=== PATIENT | female | born 1940 | race Caucasian/White ===

== ENCOUNTER 2016-12-15 16:32 | Observation (INO) | payer OTHER, MEDICARE ==
[~2016-12-15] VITALS: Ht 162.6 cm; Wt 51.2 kg
[2016-12-15] MEDS ORDERED: NITROGLYCERIN OINT 2% 1GM PACKET EXT STA (16:39)
[2016-12-15] MEDS ORDERED: SODIUM CHLORIDE 0.9% 1000ML 500 ML IV STA (16:39)
[2016-12-15] MEDS ORDERED: DOXY100C2 PO (16:49)
[2016-12-15] MEDS ORDERED: MULT-513 PO (16:49)
[2016-12-15] MEDS ORDERED: ERYTTAB PO (16:49)
[2016-12-15] MEDS ORDERED: CHOL1000 PO (16:49)
[2016-12-15] MEDS ORDERED: LEVO88TA3 PO (16:49)
[2016-12-15] MEDS ORDERED: ASPI81TA28 PO (16:49)
[2016-12-15] MEDS ORDERED: TRAM-10 PO (16:49)
--- NOTE | 2016-12-15 17:07 | EMERGENCY ROOM VISIT NOTE ---
History Report prepared by Guzman: Abbie Law Under the Supervision of: Dr. Partha Corrales M.D. First contact with patient: 16:34 Stated Complaint: CHEST PAIN History of Present Illness The patient is a 76 year old female who presents to the Emergency Room with complaints of an episode of chest pain that started two hours ago. The patient states that she was at the [employer] and had just walked up steps to get to her seat when she noticed pain in her chest on the left side. She states that it was a 4/10 in severity and radiated into her jaw. The patient reports that she felt the need to lie down. She states that her and her called for an ambulance. She reports that a half hour ago after taking four baby Aspirin and laying down, her pain resolved. The patient denies the pain radiating into her arms and back. She notes a history of costochondritis, but reports this feeling totally different. The patient denies shortness of breath, nausea, diaphoresis, a history of a heart attack, a history of angina, a history of COPD, a history of emphysema, a history of hypertension, and any similar pain within the past week. The patient notes a history of Lyme disease. Source of History: patient Onset: two hours ago Position: chest (left) Symptom Intensity: 4/10 Quality: other (radiating) Timing: other (episode) Associated Symptoms: No diaphoresis, No SOB, No nausea Note: The patient denies a history of a heart attack, a history of angina, a history of COPD, a history of emphysema, a history of hypertension, and any similar pain within the past week. Review of Systems See HPI for pertinent positives & negatives. A total of 10 systems reviewed and were otherwise negative. Past Medical & Surgical Medical Problems: (1) Lyme disease Family History No pertinent family history Social History Smoking Status: Current Some Day Smoker Marital Status: Housing Status: lives with significant other Current/Historical Medications Scheduled Aspirin (Aspirin Ec), 81 MG PO DAILY Cholecalciferol (Vitamin D3), 1 TAB PO DAILY Doxycycline Hyclate (Vibramycin), 100 MG PO DAILY Erythromycin (Erythromycin), 1 TAB PO DAILY Levothyroxine Sodium (Levothyroxine Sodium), 1 TAB PO DAILY Multivitamins/Minerals (Mvi With Minerals), 1 TAB PO DAILY Scheduled PRN Tramadol (Ultram), 50 MG PO QID PRN for Pain Allergies Coded Allergies: Cyclobenzaprine (Verified Allergy, Unknown, INSOMNIA, 12/15/16) Physical Exam Vital Signs Date Time Temp Pulse Resp B/P (MAP) Pulse Ox O2 Delivery O2 Flow Rate FiO2 12/15/16 19:06 68 20 162/89 96 Room Air 12/15/16 18:37 67 21 98 12/15/16 18:30 163/81 12/15/16 18:29 150/81 12/15/16 18:07 74 22 98 12/15/16 18:06 74 175/111 12/15/16 18:02 75 25 98 12/15/16 18:00 175/111 12/15/16 17:47 76 22 97 12/15/16 17:45 168/103 12/15/16 17:17 72 20 99 12/15/16 17:10 78 20 171/95 98 12/15/16 17:05 171/95 12/15/16 17:02 87 20 98 12/15/16 16:47 87 21 100 12/15/16 16:40 88 12/15/16 16:36 36.8 87 20 182/102 98 Room Air 12/15/16 16:36 97 Room Air 12/15/16 16:33 182/102 Physical Exam GENERAL: Patient is in no acute distress. HEENT: No acute trauma, normocephalic atraumatic, mucous membranes moist, no nasal congestion, no scleral icterus. NECK: No stridor, no adenopathy, no meningismus, trachea is midline. LUNGS: Clear to auscultation bilaterally, no wheeze, no rhonchi, breath sounds equal. HEART: Without murmurs gallops or rubs, regular rate and rhythm. ABDOMEN: Soft, nontender, bowel sounds positive, no hernias, no peritonitis. EXTREMITIES: No cyanosis or edema, full range of motion of all the joints without pain or difficulty, no signs for acute trauma. NEUROLOGIC: Oriented x 3, no acute motor or sensory deficits, no focal weakness. SKIN: No rash, no jaundice, no diaphoresis. Medical Decision & Procedures ER Provider Diagnostic Interpretation: Radiology results as stated below per my review and radiologist interpretation: CHEST ONE VIEW PORTABLE CLINICAL HISTORY: CHEST PAIN dyspnea COMPARISON STUDY: No previous studies for comparison. FINDINGS: The bones soft tissues and hemidiaphragms are normal. The cardiomediastinal silhouette is normal. The lungs are clear. The pulmonary vasculature is normal. IMPRESSION: Negative chest. The above report was generated using voice recognition software. It may contain grammatical, syntax or spelling errors. Electronically signed by: Jonh Savage M.D. 12/15/2016 5:44 PM Dictated Date/Time: 12/15/2016 5:44 PM Laboratory Results 12/15/16 16:18 12/15/16 16:18 Test 12/15/16 16:18 12/15/16 17:02 Red Blood Count 4.65 M/uL (4.2-5.4) Mean Corpuscular Volume 92.7 fL (80-100) Mean Corpuscular Hemoglobin 32.5 pg (25-34) Mean Corpuscular Hemoglobin Concent 35.0 g/dl (32-36) RDW Standard Deviation 45.5 fL (36.4-46.3) RDW Coefficient of Variation 13.5 % (11.5-14.5) Mean Platelet Volume 8.7 fL (7.4-10.4) Prothrombin Time 10.2 SECONDS (9.0-12.0) Prothromb Time International Ratio 1.0 (0.9-1.1) Activated Partial Thromboplast Time 25.1 SECONDS (21.0-31.0) Partial Thromboplastin Ratio 1.0 Anion Gap 7.0 mmol/L (3-11) Est Creatinine Clear Calc Drug Dose 45.8 ml/min Estimated GFR () 75.0 Estimated GFR (Non- 64.7 BUN/Creatinine Ratio 26.8 (10-20) Calcium Level 9.1 mg/dl (8.5-10.1) Total Bilirubin 0.2 mg/dl (0.2-1) Aspartate Amino Transf (AST/SGOT) 22 U/L (15-37) Alanine Aminotransferase (ALT/SGPT) 28 U/L (12-78) Alkaline Phosphatase 76 U/L (45-117) Total Protein 7.1 gm/dl (6.4-8.2) Albumin 3.8 gm/dl (3.4-5.0) Globulin 3.3 gm/dl (2.5-4.0) Albumin/Globulin Ratio 1.2 (0.9-2) Lipase 248 U/L (73-393) Chemistry Specimen Hemolysis Bedside Troponin I < 0.030 ng/ml (0-0.045) Laboratory results reviewed by me. Medications Administered Medications (Trade) Dose Ordered Sig/Vitaliy Route Start Time Stop Time Status Last Admin Dose Admin Sodium Chloride 500 ml @ 999 mls/hr Q31M STAT IV 12/15/16 16:39 12/15/16 17:09 DC 12/15/16 17:07 999 MLS/HR Nitroglycerin (Nitroglycerin 2% Oint) 1 inch NOW STAT EXT 12/15/16 16:39 12/15/16 16:42 DC 12/15/16 17:07 1 INCH Metoprolol Tartrate (Lopressor Iv) 5 mg NOW STAT IV 12/15/16 17:52 12/15/16 17:53 DC 12/15/16 18:06 5 MG ECG Indication: chest pain Rate (beats per minute): 85 Rhythm: normal sinus Findings: no acute ischemic change, no ectopy, other (poor R wave progression) ED Course 1635: The patient was evaluated in room A4. A complete history and physical exam was performed. 163: Ordered Nitroglycerin 1 inch EXT, NSS 500 ml @ 999 mls/hr IV. 175: I reevaluated the patient and she is doing okay. I discussed her test results with her and she agreed to the treatment plan. 175: Ordered Lopressor Iv 5 mg IV. 1817: Discussed the patient's case with Dr. Cr. The patient will be evaluated for further management. Medical Decision Differential diagnoses angina, IA, musculoskeletal pain, PE, pneumonia, pneumothorax. There is no leukocytosis or concerning anemia. No significant electrolyte abnormality or kidney failure. There is no hepatitis or coagulopathy. EKG shows a sinus rhythm, no acute ischemia. Cardiac enzyme testing 1 is not consistent with acute cardiac injury. Chest x-ray does not show pneumonia, pneumothorax or mediastinal widening. The patient presents with chest pain that radiated to her jaw after [place] the [place] stairs. She has cardiac risk factors. Right now, she is pain- free. She already received oral aspirin. She was given nitro paste. I gave her IV Lopressor as she was persistently hypertensive. The patient is still pain-free. Her story is concerning for angina. I do think a hospital stay is warranted. I spoke with the patient and case management. The on-call hospitalist was consulted. Consults Time Called: 1752 Consulting Physician: Dr. Cr Returned Call: 1817 Discussed the patient's case with Dr. Cr. The patient will be evaluated for further management. Impression Primary Impression: Precordial chest pain Scribe Attestation The scribe's documentation has been prepared under my direction and personally reviewed by me in its entirety. I confirm that the note above accurately reflects all work, treatment, procedures, and medical decision making performed by me. Departure Information Dispostion Being Evaluated By Hospitalist
[2016-12-15 17:08] LABS: HEMATOCRIT 43.1 % (37-47); MEAN CELL VOLUME 92.7 fL (80-100); MEAN CORPUSCULAR HEMOGLOBIN 32.5 pg (25-34); MEAN PLATELET VOLUME 8.7 fL (7.4-10.4); PLATELET COUNT 245 K/uL (130-400); RED BLOOD COUNT 4.65 M/uL (4.2-5.4); WHITE BLOOD COUNT 8.19 K/uL (4.8-10.8)
[2016-12-15 17:19] LABS: PROTHROMBIN TIME (PATIENT) 10.2 SECONDS (9.0-12.0)
[2016-12-15 17:38] LABS: ALB/GLOB RATIO 1.2 (0.9-2); BUN/CREATININE RATIO 26.8 (10-20); CALCIUM 9.1 mg/dl (8.5-10.1); CREATININE 0.88 mg/dl (0.60-1.20); POTASSIUM 4.4 mmol/L (3.5-5.1)
--- NOTE | 2016-12-15 17:45 | DIAGNOSTIC IMAGING REPORT ---
CHEST ONE VIEW PORTABLE CLINICAL HISTORY: CHEST PAIN dyspnea COMPARISON STUDY: No previous studies for comparison. FINDINGS: The bones soft tissues and hemidiaphragms are normal. The cardiomediastinal silhouette is normal. The lungs are clear. The pulmonary vasculature is normal. IMPRESSION: Negative chest. The above report was generated using voice recognition software. It may contain grammatical, syntax or spelling errors. Electronically signed by: Jonh Savage M.D. 12/15/2016 5:44 PM Dictated Date/Time: 12/15/2016 5:44 PM
[2016-12-15] MEDS ORDERED: METOPROLOL TARTRATE 1 MG/ML VIAL IV STA (17:52)
[2016-12-15] MEDS ORDERED: NITROGLYCERIN 0.4 MG SL PER TAB CHARGE SL PRN (20:15)
[2016-12-15] MEDS ORDERED: ONDANSETRON INJ 2 MG/ML 2 ML VIAL IV PRN (20:15)
[2016-12-15] MEDS ORDERED: ACETAMINOPHEN 325 MG TAB PO PRN (20:15)
[2016-12-15] MEDS ORDERED: ALUMINUM/MAGNESIUM/SIMETH (MAALOX MAX) 30 ML UDC PO PRN (20:15)
[2016-12-15] MEDS ORDERED: POLYETHYLENE (MIRALAX) 17 GM PACK PO PRN (20:15)
[2016-12-15] MEDS ORDERED: MAGNESIUM HYDROXIDE SUSP 30 ML UDC PO PRN (20:15)
[2016-12-15 21:15] VITALS: BP 174/77; PULSE 65; TEMP 36.5; O2SAT 97; Ht 162.6 cm; Wt 51.2 kg
[2016-12-15] MEDS ORDERED: IV FLUIDS COMPLETED PRN (21:30)
[2016-12-15] MEDS ORDERED: TRAMADOL HCL 50 MG TAB PO PRN (21:45)
--- NOTE | 2016-12-15 23:31 | History and Physical ---
History & Physical Date & Time of Service: Dec 15, 2016 at 23:31 Chief Complaint: Precordial Chest Pain Primary Care Physician: No Doctor, Assigned History of Present Illness Source: patient, hospital records This is a 76 yo F w/ hx of Lyme disease, Hx Costochondritis, Hx of Hypothyroidism, presenting with Chest pain. Patient reports Left Sided 2/10 Chest pain that started after walking up steps in [facility] during the football game today. Pain was intermittent sharp stabbing quality which would last for seconds typically with radiation to the jaw bilaterally. She denies any aggravating factors. She also reports palpitation. She was seen by EMT at [facility] at received ASA after which she says the pain resolved. She denies SOB , orthopnea, PND, calf tenderness. Patient has no Hx of heart conditions, HTN, Diabetes, HLD. She is a tobacco user. She has no hx of reflux and denies meal association with her symptoms. In the ED, she was afebrile, BP was elevated on arrival at 182/102. She was given IV Metoprolol 5 mg. EKG was unremarkable and Troponin was negative. Past Medical/Surgical History Past Medical HX - Lyme Disease - Costochondritis Past Surg Hx - Jose E Knee replacement - Cervical, Lumbar Spinal Surgery Family History No pertinent family history Social History Smoking Status: Current Every Day Smoker Alcohol Use: occasionally Drug Use: none Marital Status: Housing status: lives with family Allergies Coded Allergies: Cyclobenzaprine (Verified Allergy, Unknown, INSOMNIA, 12/15/16) Home Medications Scheduled Aspirin (Aspirin Ec), 81 MG PO DAILY Cholecalciferol (Vitamin D3), 1 TAB PO DAILY Doxycycline Hyclate (Vibramycin), 100 MG PO DAILY Erythromycin (Erythromycin), 1 TAB PO DAILY Levothyroxine Sodium (Levothyroxine Sodium), 1 TAB PO DAILY Multivitamins/Minerals (Mvi With Minerals), 1 TAB PO DAILY Scheduled PRN Tramadol (Ultram), 50 MG PO QID PRN for Pain Review of Systems Constitutional: + weakness, No fever, No chills Respiratory: No cough, No shortness of breath Cardiovascular: + chest pain, + palpitations, No edema Abdomen: No pain, No nausea, No vomiting Genitourinary - Female: No dysuria, No urinary frequency, No urinary urgency Hematologic / Lymphatic: No abnormal bleeding/bruising, No clotting problems Integumentary: No rash, No itch Physical Exam Vital Signs Date Time Temp Pulse Resp B/P (MAP) Pulse Ox O2 Delivery O2 Flow Rate FiO2 12/15/16 21:15 36.5 65 18 174/77 97 Room Air 12/15/16 20:56 36.8 67 18 155/92 97 12/15/16 20:50 67 18 155/92 97 Room Air 12/15/16 20:20 66 20 170/99 97 Room Air 12/15/16 19:06 68 20 162/89 96 Room Air 12/15/16 18:37 67 21 98 12/15/16 18:30 163/81 12/15/16 18:29 150/81 12/15/16 18:07 74 22 98 12/15/16 18:06 74 175/111 12/15/16 18:02 75 25 98 12/15/16 18:00 175/111 12/15/16 17:47 76 22 97 12/15/16 17:45 168/103 12/15/16 17:17 72 20 99 12/15/16 17:10 78 20 171/95 98 12/15/16 17:05 171/95 12/15/16 17:02 87 20 98 12/15/16 16:47 87 21 100 12/15/16 16:40 88 12/15/16 16:36 36.8 87 20 182/102 98 Room Air 12/15/16 16:36 97 Room Air 12/15/16 16:33 182/102 GENERAL: alert, well appearing, well nourished, no distress, non-toxic EYE EXAM: normal conjunctiva, PERRL and EOM's grossly intact OROPHARYNX: no exudate, no erythema, lips, buccal mucosa, and tongue normal and mucous membranes are moist NECK: supple, no nuchal rigidity, no adenopathy, non-tender LUNGS: Clear to auscultation. Normal chest wall mechanics HEART: no murmurs, S1 normal and S2 normal ABDOMEN: abdomen soft, non-tender, normo-active bowel sounds, no masses, no rebound or guarding. SKIN: no rashes and no bruising UPPER EXTREMITIES: upper extremities are grossly normal. LOWER EXTREMITIES: No pitting edema. NEURO EXAM: Normal sensorium, cranial nerves II-XII grossly intact, normal speech Diagnostics Laboratory Results Results Past 24 Hours Test 9/9/17 16:18 12/15/16 17:02 12/15/16 20:43 Range/Units White Blood Count 8.19 4.8-10.8 K/uL Red Blood Count 4.65 4.2-5.4 M/uL Hemoglobin 15.1 12.0-16.0 g/dL Hematocrit 43.1 37-47 % Mean Corpuscular Volume 92.7 80-100 fL Mean Corpuscular Hemoglobin 32.5 25-34 pg Mean Corpuscular Hemoglobin Concent 35.0 32-36 g/dl RDW Standard Deviation 45.5 36.4-46.3 fL RDW Coefficient of Variation 13.5 11.5-14.5 % Platelet Count 245 130-400 K/uL Mean Platelet Volume 8.7 7.4-10.4 fL Prothrombin Time 10.2 9.0-12.0 SECONDS Prothromb Time International Ratio 1.0 0.9-1.1 Activated Partial Thromboplast Time 25.1 21.0-31.0 SECONDS Partial Thromboplastin Ratio 1.0 Sodium Level 139 136-145 mmol/L Potassium Level 4.4 3.5-5.1 mmol/L Chloride Level 104 98-107 mmol/L Carbon Dioxide Level 28 21-32 mmol/L Anion Gap 7.0 3-11 mmol/L Blood Urea Nitrogen 24 7-18 mg/dl Creatinine 0.88 0.60-1.20 mg/dl Est Creatinine Clear Calc Drug Dose 45.8 ml/min Estimated GFR () 75.0 Estimated GFR (Non- 64.7 BUN/Creatinine Ratio 26.8 10-20 Random Glucose 96 70-99 mg/dl Calcium Level 9.1 8.5-10.1 mg/dl Total Bilirubin 0.2 0.2-1 mg/dl Aspartate Amino Transf (AST/SGOT) 22 15-37 U/L Alanine Aminotransferase (ALT/SGPT) 28 12-78 U/L Alkaline Phosphatase 76 45-117 U/L Total Protein 7.1 6.4-8.2 gm/dl Albumin 3.8 3.4-5.0 gm/dl Globulin 3.3 2.5-4.0 gm/dl Albumin/Globulin Ratio 1.2 0.9-2 Lipase 248 73-393 U/L Chemistry Specimen Hemolysis Bedside Troponin I < 0.030 0-0.045 ng/ml Troponin I 0.017 0-0.045 ng/ml Diagnostic Radiology CHEST ONE VIEW PORTABLE CLINICAL HISTORY: CHEST PAIN dyspnea COMPARISON STUDY: No previous studies for comparison. FINDINGS: The bones soft tissues and hemidiaphragms are normal. The cardiomediastinal silhouette is normal. The lungs are clear. The pulmonary vasculature is normal. IMPRESSION: Negative chest. CXR normal Impression Assessment and Plan 76 yo F smoker p/w intermittent L sided Chest pain with radiation to the jaw Admit to Tele (Obs) Chest pain - Stable Angina vs. Unstable angina vs. GERD vs. Costochondritis - ACS unlikely given unremarkable EKG, troponin ; Costochondritis possible given previous hx however, symptoms differ from previous sensation, - No hx of GERD or meal association w/ symptoms - CXR unremarkable - Initial troponin neg. - trend troponin q 8 - PRN Nitro - F/u Lipid panel -Echo Jose E knee pain - c/w Tramadol Hypothyroidism - synthroid DVT Prophylaxis -SCD Full code Level of Care Telemetry Advanced Directives Existing Living Will: Yes Existing Power of Spinner Concrete Pipe: Yes Resuscitation Status FULL RESUSCITATION VTE Prophylaxis VTE Risk Assessment Done? Y/N: Yes Risk Level: Moderate Given or contraindicated: SCD's Resident Tracking Resident Involvement: Resident Care Provided Care Provided: Adult Hospital Medicine
[2016-12-15 23:45] VITALS: BP 214/86
[2016-12-16] VITALS (7 sets, daily range): BP systolic 157–187; BP diastolic 71–78; PULSE 64–79; TEMP 36.3–36.7; O2SAT 96–98
[2016-12-16] MEDS ORDERED: HYDROCODONE/ACETAMOPHEN 5/325MG TAB PO PRN (03:15)
[2016-12-16] MEDS ORDERED: LORAZEPAM 0.5 MG TAB PO STA (03:20)
[2016-12-16] MEDS ORDERED: LORAZEPAM 0.5 MG TAB PO PRN (03:30)
[2016-12-16] MEDS ORDERED: LEVOTHYROXINE 88 MCG TAB PO SCH (06:00)
[2016-12-16 08:41] LABS: CHOLESTEROL/HDL RATIO 2.4
[2016-12-16] MEDS ORDERED: ASPIRIN 81 MG ECTAB PO SCH (09:00)
[2016-12-16] MEDS ORDERED: TPRSR25 PO (12:38)
[2016-12-16] MEDS ORDERED: NTRGSL4 SL (12:38)
[2016-12-16] MEDS ORDERED: METOPROLOL TARTRATE 25 MG TAB PO ONE (12:45)
--- NOTE | 2016-12-16 12:51 | Discharge Instructions ---
Discharge Instructions Date of Service Dec 16, 2016. Admission Reason for Admission: Precordial Chest Pain Discharge Discharge Diagnosis / Problem: chest pain - reflux versus angina Discharge Goals Goal(s): Diagnostic testing, Therapeutic intervention Activity Recommendations Activity Limitations: as noted below . Instructions / Follow-Up Instructions / Follow-Up as we discussed, your symptoms "sit on the fence" between symptoms that could be consistent with indigestion, or more worrisome symptoms that could be indicative of angina (lack of blood flow to your heart) ---the workup we did in the hospital is able to answer the question of "was this an acute heart attack" (abundantly no -- EKG reassuring, cardiac enzymes negative on multiple repetitions) but in no way can answer the question of whether or not this was angina from your heart asking for more blood flow than it could get -to that end, further testing is needed -assuming that your echo does not show stigmata of an old heart attack, the next step would be stress testing, coordinated by Dr Saavedra -if your echo does show findings consistent with an old heart attack, the stress test would be replaced by a heart cath to evaluate the blood vessels. as we discussed while this is unlikely to be the case, if it were, the current event would not have been an acute heart attack anyway, as cardiac enzymes are nearly 100% sensitive for this, and can remain elevated for at least a week after an event -until further workup, we'll need to treat as though this could be your heart: a) take it easy. since the symptoms happened with exertion, as long as you take it easy, even if this was your heart, it's not likely to cause you problems until the further workup is done b) continue your 81mg aspirin a day c) take the metoprolol until directed otherwise by Dr Saavedra. Metoprolol as a blood pressure med takes strain off your heart, and can be very protective in supply-demand//lack of blood flow types of situations - so until we've got this better defined, we want you taking the metoprolol d) if you get chest symptoms, stop what you're doing and rest. if the symptoms don't go away with rest, then you'd take a nitroglycerin under your tongue. if the symptoms persist five minutes after the first nitro, take a second nitro. at this point, because your situation is "undefined" we'd recommend that when you take the second nitro, you also chew an aspirin and call 911. (compared to someone who has known heart disease, where there's "wiggle room" for another five minutes and a third nitro, when we have someone that the situation still needs further workup, we "lower the bar" to keep you safe). if you're getting symptoms with exertion that resolve with nitro, it also makes the situation more worrisome that this may be cardiac try to quit smoking!! if there are blood vessel blockages, smoking is usually the single worst thing at making them get tighter/more blocked, lead to heart attacks and strokes, etc. -consider calling the [place] Quit Line -- 1800 QUIT NOW -- for some advice from people who have been there and have some strategies that can help. Current Hospital Diet Patient's current hospital diet: Regular Diet Discharge Diet Recommended Diet: Regular Diet Pending Studies Studies pending at discharge: yes List of pending studies: your echocardiogram has yet to be read by cardiology. as we discussed, if it shows stigmata of old heart attack, then Dr Saavedra would be compelled to skip the stress test and refer you to cardiology to discuss a heart cath. If it shows a thick heart wall it would also make him more inclined to look at your blood pressure elevations as long standing instead of situational Laboratory Results Lipid Panel Test 12/16/16 07:42 Range/Units Triglycerides Level 55 0-150 mg/dl Cholesterol Level 187 0-200 mg/dl HDL Cholesterol 78 mg/dl Cholesterol/HDL Ratio 2.4 LDL Cholesterol, Calculated 98 mg/dl Medical Emergencies . Who to Call and When: Medical Emergencies: If at any time you feel your situation is an emergency, please call 911 immediately. . Non-Emergent Contact Non-Emergency issues call your: Primary Care Provider (expect to hear from Dr Saavedra's office tomorrow afternoon, or no later than Saturday AM. Call by Saturday if they haven't called you.) . . "Provider Documentation" section prepared by Abimael Inman. . VTE Core Measure Inpt VTE Proph given/why not?: SCD's
--- NOTE | 2016-12-16 13:05 | ECHOCARDIOGRAM REPORT ---
*NOTICE TO RECEIVING REPUBLICAN AGENCY This information is strictly Confidential and protected under [place] law. [place] law prohibits you from making any further disclosure of this information unless further disclosure is expressly permitted by the written consent of the person to whom it pertains or is authorized by law. A general authorization for the release of medical or other information is not sufficient for this purpose. Hospital accepts no responsibility if the information is made available to any other person, INCLUDING THE PATIENT. Interpretation Summary * Name: MYRNA JIMÉNEZ Study Date: 12/16/2016 10:15 AM BP: 157/71 mmHg * Patient Location: C.2T\S\E222\S\1 HR: 67 * : 1940 (M/d/yyyy) Gender: Female Height: 64 in * Age: 76 yrs Ethnicity: CA Weight: 113 lb * Ordering Physician: Bryson Winslow * Referring Physician: UNKNOWN * Performed By: Lui Yuan RDCS * * Reason For Study: Chest pain * BSA: 1.5 m2 * -- Conclusions -- * 1. Normal LV size and wall thickness. * 2. Normal LV systolic function. LVEF 65-70%. No regional wall motion abnormalities. * 3. Normal RV size and function. * 4. No significant valvular pathology. * 5. No prior studies for comparison. Procedure Details * A complete two-dimensional transthoracic echocardiogram was performed (2D, M-mode, Doppler and color flow Doppler). * The study was technically adequate. Left Ventricle * The left ventricle is grossly normal size. * There is normal left ventricular wall thickness. * Ejection Fraction = 65-70%. * No regional wall motion abnormalities noted. Right Ventricle * The right ventricle is grossly normal size. * The right ventricular systolic function is normal as assessed by tricuspid annular plane systolic excursion (TAPSE) (normal >1.5 cm). Atria * The left atrial size is normal. * Right atrial size is normal. * No ASD detected; PFO is not assessed. Mitral Valve * The mitral valve is grossly normal. * There is no mitral valve stenosis. * Significant mitral regurgitation is absent. Tricuspid Valve * The tricuspid valve anatomy is normal. * There is no tricuspid stenosis. * There is trace tricuspid regurgitation. Aortic Valve * The aortic valve opens well. * The aortic valve is trileaflet. * No hemodynamically significant valvular aortic stenosis. * There is no significant aortic regurgitation. Pulmonic Valve * The pulmonary valve is inadequately visualized, but the Doppler data is adequate for interpretation. * There is no pulmonic valvular stenosis. * Trace pulmonic valvular regurgitation. Great Vessels * The aortic root and proximal ascending aorta are normal sized. * Mild atherosclerotic plaque(s) in the descending aorta. Pericardium/Pleural * There is no pericardial effusion. Great Vessels * IVC < 2.1, <50% change with respiration. Est RA 8 mmHg. MMode 2D Measurements and Calculations IVSd 0.97 cm IVSs 1.4 cm LVIDd 3.6 cm LVIDs 2.1 cm LVPWd 0.97 cm LVPWs 1.4 cm IVS/LVPW 1.0 FS 41.7 % EDV(Teich) 56.0 ml ESV(Teich) 14.8 ml EF(Teich) 73.6 % EDV(cubed) 48.4 ml ESV(cubed) 9.6 ml EF(cubed) 80.2 % % IVS thick 44.1 % % LVPW thick 39.4 % LV mass(C)d 105.1 grams LV mass(C)dI 68.5 grams/m\S\2 LV mass(C)s 88.9 grams LV mass(C)sI 57.9 grams/m\S\2 SV(Teich) 41.2 ml SI(Teich) 26.9 ml/m\S\2 SV(cubed) 38.8 ml SI(cubed) 25.3 ml/m\S\2 Ao root diam 2.8 cm Ao root area 6.2 cm\S\2 LA dimension 2.7 cm asc Aorta Diam 3.2 cm LA/Ao 0.97 LVAd ap4 17.1 cm\S\2 LVLd ap4 6.0 cm EDV(MOD-sp4) 40.3 ml LVAs ap4 9.5 cm\S\2 LVLs ap4 5.5 cm ESV(MOD-sp4) 13.4 ml EF(MOD-sp4) 66.7 % LVAd ap2 16.0 cm\S\2 LVLd ap2 6.8 cm EDV(MOD-sp2) 31.9 ml LVAs ap2 0.04 cm\S\2 LVLs ap2 0.16 cm ESV(MOD-sp2) 10.7 ml EF(MOD-sp2) 66.5 % SV(MOD-sp4) 26.9 ml SI(MOD-sp4) 17.5 ml/m\S\2 SV(MOD-sp2) 21.2 ml SI(MOD-sp2) 13.8 ml/m\S\2 Doppler Measurements and Calculations MV E max wiley 74.7 cm/sec MV A max wiley 87.8 cm/sec MV E/A 0.85 MV dec time 0.32 sec Ao V2 max 116.4 cm/sec Ao max PG 5.4 mmHg Ao max PG (full) 3.0 mmHg LV V1 max PG 2.4 mmHg LV V1 max 78.1 cm/sec PA V2 max 84.4 cm/sec PA max PG 2.8 mmHg PA acc slope 363.7 cm/sec\S\2 PA acc time 0.18 sec PI end-d wiley 127.0 cm/sec PA pr(Accel) -0.22 mmHg
--- NOTE | 2016-12-16 13:46 | Discharge Summary ---
Discharge Summary Date of Service Dec 16, 2016. (Giancarlo Geiger M.D.) Discharge Summary Admission Date: Dec 15, 2016 at 20:30 Discharge Date: Dec 16, 2016 Discharge Disposition: Home Principal Diagnosis: anginal chest pain Problems/Secondary Diagnoses: bilateral knee pain hypothyroidism Procedures: chest x-ray 12/15/16 CHEST ONE VIEW PORTABLE CLINICAL HISTORY: CHEST PAIN dyspnea COMPARISON STUDY: No previous studies for comparison. FINDINGS: The bones soft tissues and hemidiaphragms are normal. The cardiomediastinal silhouette is normal. The lungs are clear. The pulmonary vasculature is normal. IMPRESSION: Negative chest. Consultations: none (Giancarlo Geiger M.D.) Medication Reconciliation New Medications: Metoprolol Succinate (Metoprolol Succinate ER) 25 Mg Tabcr 1 TAB PO DAILY, #30 TAB Nitroglycerin (Nitrostat) 0.4 Mg/1 Tab Subl 1 TAB SL UD PRN for Chest Pain, #10 TABS take on SL q5mins prn chest pain - call 911 if second dose needed/pain persists Continued Medications: Aspirin (Aspirin Ec) 81 Mg Tab 81 MG PO DAILY Cholecalciferol (Vitamin D3) 1,000 Unit Tab 1 TAB PO DAILY for 90 Days, #90 TAB 3 Refills Doxycycline Hyclate (Vibramycin) 100 Mg Cap 100 MG PO DAILY for 10 Days, #10 CAP Erythromycin (Erythromycin) 500 Mg Tab 1 TAB PO DAILY for 10 Days, #10 TAB Levothyroxine Sodium (Levothyroxine Sodium) 88 Mcg Tab 1 TAB PO DAILY for 90 Days, #90 TAB 3 Refills Multivitamins/Minerals (Mvi With Minerals) Tab 1 TAB PO DAILY, TAB Tramadol (Ultram) 50 Mg Tab 50 MG PO QID PRN for Pain, TAB Discharge Exam Review of Systems: Constitutional: No fever Respiratory: No shortness of breath Cardiovascular: No chest pain Abdomen: No pain, No nausea, No vomiting Musculoskeletal: + joint pain Genitourinary - Female: No dysuria Neurologic: No problem reported Physical Exam: General Appearance: no apparent distress Eyes: normal inspection Respiratory/Chest: lungs clear, normal breath sounds, no respiratory distress Cardiovascular: regular rate, rhythm, no edema Abdomen / GI: normal bowel sounds, non tender, soft Extremities: no calf tenderness, no pedal edema Neurologic/Psychiatric: alert, oriented x 3 Skin: warm/dry (Giancarlo Geiger M.D.) Hospital Course 76y/oF with hx of Lyme disease, costochondritis, hypothyroidism and smoking presented with intermittent sharp chest pain radiating to her jaw s/p tailgating and walking to the [place]. Associated with palpitations and elevated BPs during the course of her stay. Pt denied hx of heart conditions , HTN, DM or reflux. Chest pain consistent with exertional indigestion vs exertional angina: -ACS unlikely as repeated troponins neg and EKG normal -Chest x-ray normal -Lipids, coags, lipase, CBC and CMP all wnl -ECHO completed to look for stigmata of an old heart attack, report pending at time of discharge -Stable angina needs to be followed up on an outpatient basis with a stress echo if echo does not show any old heart attacks in which case she will need outpatient cardiac cath: pt navigator requested to touch base with PCP Yair Gonzalez in [place] to coordinate Patient instructed to: -Not over exert herself -Continue Aspirin 81mg daily -Follow up with Dr. Saavedra for stress echo -Take prescribed metoprolol 25mg daily until seen by Dr. Saavedra and told otherwise to decrease cardiac demand -Stop and sit down if gets another chest pain episode, and if symptoms do not go away after 1-2 minutes put a Nitroglycerin under tongue -If symptoms persist five minutes after first nitro, take a second nitro and chew an aspirin and call 911. -To quit smoking, to avoid atherosclerosis of arteries. [place] Quit Line - 1800 QUIT NOW provided Total Time Spent: Greater than 30 minutes This includes examination of the patient, discharge planning, medication reconciliation, and communication with other providers. (Giancarlo Geiger M.D.) Resident Physician Supervision Note: I interviewed and examined the patient. Discussed with Dr. Geiger and agree with findings and plan as documented in the note. Any exceptions or clarifications are listed here: None Documented By: Abimael Inman feeling better no further CP. discussed extensively w pt and . they both express understanding vitals noted nad breathing unlabored no pallor or icterus EKG and enzymes OK. echo still pending at the time of our discussion and discharge - pasted in above as late finding (for all practical purposes normal) chest pain -indigestion vs new angina -for stress test -until stress done - to rest, added beta romulo and prn nitro, continue asa -asked RN chai to assist in facilitating stress through PCP/help coordinate care Total Time Spent: Greater than 30 minutes (Abimael Inman D.O.) Discharge Instructions Please refer to the electronic Patient Visit Report (Discharge Instructions) for additional information. (Giancarlo Geiger M.D.)
[2016-12-16] MEDS ORDERED: METOPROLOL SUCC 25MG EXT REL TAB PO ONE (14:00)
== END 2016-12-16 13:15 | disposition home or self-care (01) ==
LOC: C.EDA 16:35 → C.2T 20:30 → ENRESERV 20:44
PROVIDERS: ADMIT Hospitalist; ATTEND Hospitalist
DX: R07.9 Chest pain, unspecified (principal); M25.561 Pain in right knee; E03.9 Hypothyroidism, unspecified; F17.200 Nicotine dependence, unspecified, uncomplicated; Z79.82 Long term (current) use of aspirin; Z79.899 Other long term (current) drug therapy; M25.562 Pain in left knee